=== PATIENT | male | born 1990 | race Caucasian/White ===

== ENCOUNTER 2021-03-03 08:23 | Outpatient (REF) | payer BC, SELFPAY ==
[2021-03-03 20:17] LABS: Hemoglobin A1C 5.5 % (<5.7)
[2021-03-03 20:33] LABS: ALT 43 U/L (16-63); AST 24 U/L (15-37); Albumin 4.1 g/dL (3.4-5.0); Alkaline Phosphatase 42 U/L (46-116); Anion Gap 7.8 mmol/L (3-11); BUN 16 mg/dL (7-18); Bilirubin, Total 0.4 mg/dL (0.2-1.0); CO2 28.2 mmol/L (21.0-32.0); CREATININE 1.1 mg/dL (0.70-1.30); Calcium 8.7 mg/dL (8.5-10.1); Calculated LDL 112 mg/dL (<100); Chloride 103 mmol/L (98-107); Cholesterol 192 mg/dL (<200); Glucose 92 mg/dL (74-106); HDL Cholesterol 40 mg/dL (40-60); Potassium 4.2 mmol/L (3.5-5.1); Sodium 139 mmol/L (136-145); Triglyceride 203 mg/dL (<150)
== END 2021-03-03 08:24 | disposition home or self-care (01) ==
LOC: NCHCN 08:23
PROVIDERS: Visit Provider Nurse Practitioner Family
DX: E78.1 Pure hyperglyceridemia (principal); Z68.39 Body mass index [BMI] 39.0-39.9, adult
CPT/HCPCS: 80053; 80061; 83036

== ENCOUNTER 2022-01-29 15:06 | Outpatient (CLI) | payer BC, SELFPAY ==
[2022-02-02 17:23] LABS: Banana, IgE <0.35 kU/L; Mango, IgE <0.35 kU/L; Milk, IgE <0.35 kU/L; Pineapple, IgE <0.35 kU/L
== END 2022-01-29 15:07 | disposition home or self-care (01) ==
LOC: LBO 15:07
PROVIDERS: PCP Nurse Practitioner Family; Visit Provider Physician Assistant
DX: Z91.018 Allergy to other foods (principal)
CPT/HCPCS: 36415; 86003

== ENCOUNTER 2022-10-13 09:23 | Outpatient (REF) | payer BC, SELFPAY ==
[2022-10-13 20:32] LABS: Anion Gap 6.5 mmol/L (3-11); BUN 12 mg/dL (7-18); CO2 29.5 mmol/L (21.0-32.0); CREATININE 1.1 mg/dL (0.70-1.30); Calcium 8.9 mg/dL (8.5-10.1); Chloride 104 mmol/L (98-107); Estimated GFR 92.04 (mL/min/1.73m2); Glucose 92 mg/dL (74-106); Sodium 140 mmol/L (136-145)
== END 2022-10-13 09:24 | disposition home or self-care (01) ==
LOC: NCHCN 09:23
PROVIDERS: PCP Nurse Practitioner Family; Visit Provider Nurse Practitioner Family
DX: E66.9 Obesity, unspecified (principal)
CPT/HCPCS: 80048

== ENCOUNTER 2023-03-23 15:26 | Outpatient (REF) | payer BC, SELFPAY ==
[2023-03-23 22:33] LABS: Calculated LDL 102 mg/dL (<100); Cholesterol 227 mg/dL (<200); HDL Cholesterol 49 mg/dL (40-60); Triglyceride 383 mg/dL (<150)
== END 2023-03-23 15:27 | disposition home or self-care (01) ==
LOC: NCHCN 15:26
PROVIDERS: PCP Nurse Practitioner Family; Visit Provider Nurse Practitioner Family
DX: E78.5 Hyperlipidemia, unspecified (principal)
CPT/HCPCS: 80061

== ENCOUNTER 2023-09-21 13:16 | Outpatient (REF) | payer BC, SELFPAY ==
[2023-09-21 21:01] LABS: Cholesterol 225 mg/dL (<200); Triglyceride 276 mg/dL (<150)
[2023-09-21 21:53] LABS: Calculated LDL 126 mg/dL (<100); HDL Cholesterol 44 mg/dL (40-60)
== END 2023-09-21 13:17 | disposition home or self-care (01) ==
LOC: NCHCN 13:16
PROVIDERS: PCP Nurse Practitioner Family; Visit Provider Nurse Practitioner Family
DX: E78.5 Hyperlipidemia, unspecified (principal)
CPT/HCPCS: 80061

== ENCOUNTER 2024-10-31 09:44 | Outpatient (REF) | payer BC, SELFPAY ==
[2024-10-31 20:42] LABS: ALT 73 U/L (16-63); AST 41 U/L (15-37); Albumin 4.1 g/dL (3.4-5.0); Alkaline Phosphatase 43 U/L (46-116); Anion Gap 3.5 mmol/L (3-11); BUN 15 mg/dL (7-18); Bilirubin, Total 0.6 mg/dL (0.2-1.0); CO2 32.5 mmol/L (21.0-32.0); Calcium 8.8 mg/dL (8.5-10.1); Calculated LDL 124 mg/dL (<100); Chloride 102 mmol/L (98-107); Cholesterol 242 mg/dL (<200); Estimated GFR 90.34 (mL/min/1.73m2); Glucose 96 mg/dL (74-106); HDL Cholesterol 45 mg/dL (>or=40); Potassium 4.3 mmol/L (3.5-5.1); Sodium 138 mmol/L (136-145); Total Protein 7.4 g/dL (6.4-8.2); Triglyceride 368 mg/dL (<150)
== END 2024-10-31 09:45 | disposition home or self-care (01) ==
LOC: NCHCN 09:44
PROVIDERS: PCP Nurse Practitioner Family; Visit Provider Nurse Practitioner Family
DX: E78.5 Hyperlipidemia, unspecified (principal)
CPT/HCPCS: 80053; 80061